=== PATIENT | male | born 1955 | race Caucasian/White ===

== ENCOUNTER 2020-08-26 22:08 | Day surgery (SDCO) | payer MEDICARE, OTHER ==
[~2020-08-26 22:08] MED LIST: NORVASC5 MG PO
[2020-08-26 22:46] LABS: BASOPHIL 0.3 % (0-2); HCT 30.4 % (42.0-52.0); HGB 10.1 g/dl (13.2-18.0); LYMPHOCYTE 13.4 % (15-48); MCHC 33.2 g/dL (32.0-36.0); MCV 96.2 fL (78.0-100.0); MONOCYTE 7.5 % (0-12); MPV 9.1 fL (6.0-9.5); NEUTROPHIL 76.2 % (41-80); NRBC 0; PLT 226 K/uL (150-400); RBC 3.16 M/uL (4.70-6.00); RDW 16.3 % (11.5-14.0); WBC 11.8 K/uL (4.0-10.5)
[2020-08-26 23:00] LABS: ALBUMIN 4.1 g/dL (3.4-5.0); BILIRUBIN - TOTAL 0.5 mg/dL (0.2-1.0); BUN/CREAT RATIO (CALC) 19.8 RATIO; CREATININE 1.21 mg/dL (0.67-1.17); GLOBULIN (CALCULATION) 4.5 g/dL; POTASSIUM 4.1 mmol/L (3.5-5.1); TOTAL PROTEIN 8.6 g/dL (6.4-8.2)
[2020-08-26 23:06] LABS: PRO-BNP 5037 pg/mL (<125)
[2020-08-27 00:14] LABS: CORONAVIRUS 2019 SARS-COV-2 NEGATIVE (NEGATIVE); INFLUENZA A NAA NEGATIVE (NEGATIVE)
[2020-08-27] MEDS ORDERED: TRAZODONE 100M100 MG PO (03:40)
[2020-08-27] MEDS ORDERED: FEOSOL325 MG PO (03:40)
[2020-08-27] MEDS ORDERED: KEPPRA XR500 MG PO (03:41)
[2020-08-27] MEDS ORDERED: ESCITALOPRAM OXA5 MG PO (03:42)
[2020-08-27] MEDS ORDERED: CARVEDILOL12.5 MG PO (03:44)
[2020-08-27 04:15] LABS: INR 0.96 (0.9-1.2); PROTHROMBIN TIME 12.1 SECONDS (11.4-13.6)
[2020-08-27] MEDS ORDERED: VENTOLIN HFA IN18 GM INH (09:55)
[2020-08-27] MEDS ORDERED: CLONIDINE HCL0.2 MG PO (09:56)
[2020-08-27] MEDS ORDERED: NORVASC5 MG PO (09:56)
[2020-08-27] MEDS ORDERED: LACTULOSE10 G/15 ML PO (09:57)
[2020-08-27] MEDS ORDERED: FOLIC ACID1 MG PO (09:58)
[2020-08-27] MEDS ORDERED: VITAMIN B-1 PO (10:00)
[2020-08-27] MEDS ORDERED: VITAMIN E PO (10:01)
--- NOTE | 2020-08-27 10:09 | NUR ---
08/27/20 Please consider full admit or discharge. Thank You
[2020-08-28 06:16] LABS: BASOPHIL 0.1 % (0-2); EOSINOPHIL 0 % (0-5); HCT 27.2 % (42.0-52.0); HGB 8.8 g/dl (13.2-18.0); MCH 31.9 pg (25.0-31.0); MCHC 32.4 g/dL (32.0-36.0); MCV 98.6 fL (78.0-100.0); MONOCYTE 7.6 % (0-12); MPV 9.4 fL (6.0-9.5); NEUTROPHIL 84.8 % (41-80); NRBC 0; PLT 228 K/uL (150-400); RBC 2.76 M/uL (4.70-6.00); RDW 16.5 % (11.5-14.0); WBC 12.5 K/uL (4.0-10.5)
[2020-08-28 06:30] LABS: ALBUMIN 3.5 g/dL (3.4-5.0); BILIRUBIN - TOTAL 0.3 mg/dL (0.2-1.0); BUN/CREAT RATIO (CALC) 25.8 RATIO; CREATININE 1.55 mg/dL (0.67-1.17); MAGNESIUM 2.4 mg/dL (1.8-2.4); PHOSPHORUS 4.8 mg/dL (2.6-4.7); POTASSIUM 5.4 mmol/L (3.5-5.1); TOTAL PROTEIN 7.5 g/dL (6.4-8.2)
[2020-08-29 06:25] LABS: BASOPHIL 0.1 % (0-2); EOSINOPHIL 0 % (0-5); HCT 25.9 % (42.0-52.0); HGB 8.4 g/dl (13.2-18.0); LYMPHOCYTE 7.1 % (15-48); MCH 31.9 pg (25.0-31.0); MCHC 32.4 g/dL (32.0-36.0); MCV 98.5 fL (78.0-100.0); MONOCYTE 7.6 % (0-12); MPV 9.4 fL (6.0-9.5); NEUTROPHIL 84.2 % (41-80); NRBC 0; PLT 235 K/uL (150-400); RBC 2.63 M/uL (4.70-6.00); RDW 16.6 % (11.5-14.0); WBC 14.4 K/uL (4.0-10.5)
[2020-08-29 06:43] LABS: BUN/CREAT RATIO (CALC) 30.8 RATIO; CREATININE 1.85 mg/dL (0.67-1.17); POTASSIUM 4.6 mmol/L (3.5-5.1)
[2020-08-29] MEDS ORDERED: SPIRIVA RESPIMAT4 G1 INH (14:14)
[2020-08-29] MEDS ORDERED: DUONEB 2.5-0.5M1 AMP INH (14:14)
[2020-08-29] MEDS ORDERED: AZITHROMYCIN250 MG PO (14:14)
[2020-08-29] MEDS ORDERED: CEFDINIR300 MG PO (14:14)
[2020-08-29] MEDS ORDERED: PREDNISONE 20MG20 MG PO (14:14)
--- NOTE | 2020-08-29 14:57 | NUR ---
08/29/20 Mr. Hidalgo lives alone. His sister, Martha Concepcion, , is the legal guardian. Mr. Hidalgo has a quad cane and nebulizer. He reports to be independent with IADLS. His sister and mother run errands and deliver groceries. Ms. Concepcion supported the referral to [facility] for . - Deepti Jon was requested to update the Face Sheet with the guardian's information. - A report was given to MS YARI Ferraro
== END 2020-08-29 17:50 | disposition home or self-care (01) ==
LOC: FER 22:08 → FMS 08-27 02:48
PROVIDERS: Emergency Medicine; Internal Medicine; Nurse Practitioner; ADMIT Internal Medicine
DX: Z53.8 Procedure and treatment not carried out for other reasons (principal)
CPT/HCPCS: 36415; 36600; 71045; 71275; 80048; 80053; 82803; 83605; 83735; 83880; 84100; 84145; 84484; 85025; 85379; 85610; 87040; 87070; 87077; 87186; 87205; 93005; 94010; 94640; 94664; 94760; 94762; G0378; J0696; J1650; J1940; J2405; J2930; J7512; Q9967; U0002

== ENCOUNTER 2020-08-30 10:15 | Inpatient (IN) | payer MEDICARE, OTHER ==
[~2020-08-30 10:15] MED LIST changes: +AZITHROMYCIN250 MG PO; +CARVEDILOL12.5 MG PO; +CEFDINIR300 MG PO; +CLONIDINE HCL0.2 MG PO; +DUONEB 2.5-0.5M1 AMP INH; +ESCITALOPRAM OXA5 MG PO; +FEOSOL325 MG PO; +FOLIC ACID1 MG PO; +KEPPRA XR500 MG PO; +LACTULOSE10 G/15 ML PO; +PREDNISONE 20MG20 MG PO; +SPIRIVA RESPIMAT4 G1 INH; +TRAZODONE 100M100 MG PO; +VENTOLIN HFA IN18 GM INH; +VITAMIN B-1 PO; +VITAMIN E PO
[2020-08-30 11:03] LABS: BASOPHIL 0.1 % (0-2); EOSINOPHIL 0 % (0-5); HCT 28.9 % (42.0-52.0); HGB 9.6 g/dl (13.2-18.0); LYMPHOCYTE 7.8 % (15-48); MCH 32.9 pg (25.0-31.0); MCHC 33.2 g/dL (32.0-36.0); MONOCYTE 9.9 % (0-12); MPV 9.6 fL (6.0-9.5); NRBC 0; PLT 289 K/uL (150-400); RBC 2.92 M/uL (4.70-6.00); RDW 16.9 % (11.5-14.0); WBC 21.3 K/uL (4.0-10.5)
[2020-08-30 11:13] LABS: ALBUMIN 4.4 g/dL (3.4-5.0); BILIRUBIN - TOTAL 0.5 mg/dL (0.2-1.0); BUN/CREAT RATIO (CALC) 37.5 RATIO; CREATININE 1.2 mg/dL (0.67-1.17); GLOBULIN (CALCULATION) 3.8 g/dL; TOTAL PROTEIN 8.2 g/dL (6.4-8.2)
[2020-08-30 11:19] LABS: LACTIC ACID 1.2 mmol/L (0.4-1.9)
[2020-08-30 12:52] LABS: BILIRUBIN NEGATIVE (NEGATIVE); BLOOD NEGATIVE Ery/uL (NEGATIVE); CLARITY CLEAR (CLEAR); COLOR YELLOW (YELLOW); GLUCOSE (U) NORMAL (NORMAL); LEUKOCYTES NEGATIVE Leu/uL (NEGATIVE); NITRITE NEGATIVE (NEGATIVE); PROTEIN NEGATIVE (NEGATIVE); SPECIFIC GRAVITY 1.025 (1.001-1.030); UROBILINOGEN 0.2 mg/dL (0.2-1.0); pH 5.5 (5.0-9.0)
[2020-08-31 05:40] LABS: BASOPHIL 0 % (0-2); EOSINOPHIL 0 % (0-5); HCT 28.1 % (42.0-52.0); HGB 9.4 g/dl (13.2-18.0); LYMPHOCYTE 6.4 % (15-48); MCH 32.4 pg (25.0-31.0); MCHC 33.5 g/dL (32.0-36.0); MCV 96.9 fL (78.0-100.0); MONOCYTE 3.7 % (0-12); MPV 9.8 fL (6.0-9.5); NEUTROPHIL 89.3 % (41-80); NRBC 0; PLT 251 K/uL (150-400); RDW 16.3 % (11.5-14.0); WBC 7.9 K/uL (4.0-10.5)
[2020-08-31 06:27] LABS: CREATININE 1.15 mg/dL (0.67-1.17); POTASSIUM 4.3 mmol/L (3.5-5.1)
[2020-08-31 13:07] LABS: FOLIC ACID (SERUM) 80.1 ng/mL (8.6-58.9)
[2020-09-01 02:20] LABS: CORONAVIRUS 229E NOT DETECTED (NOT DETECT); CORONAVIRUS HKU1 NOT DETECTED (NOT DETECT); CORONAVIRUS NL63 NOT DETECTED (NOT DETECT)
[2020-09-01 02:21] LABS: B. PERTUSSIS DNA NOT DETECTED (NOT DETECT); CHLAMYDOPHILA PNEUMON DNA PCR NOT DETECTED (NOT DETECT); CORONAVIRUS 2019 PCR NOT DETECTED (NOT DETECTD); CORONAVIRUS OC43 NOT DETECTED (NOT DETECT); HUMAN METAPNEUMO NOT DETECTED (NOT DETECT); INFLUENZA A NOT DETECTED (NOT DETECT); INFLUENZA A 2009 H1N1 NOT DETECTED (NOT DETECT); INFLUENZA A H1 NOT DETECTED (NOT DETECT); INFLUENZA A H3 NOT DETECTED (NOT DETECT); INFLUENZA B NOT DETECTED (NOT DETECT); MYCOPLASMA PNEUMONIAE NOT DETECTED (NOT DETECT); PARAINFLUENZA 1 NOT DETECTED (NOT DETECT); PARAINFLUENZA 2 NOT DETECTED (NOT DETECT); PARAINFLUENZA 3 NOT DETETED (NOT DETECT); PARAINFLUENZA 4 NOT DETECTED (NOT DETECT); RESPIRATORY SYNCYTIAL VIRUS NOT DETECTED (NOT DETECT)
[2020-09-01 06:28] LABS: BASOPHIL 0 % (0-2); EOSINOPHIL 0 % (0-5); HCT 26.1 % (42.0-52.0); HGB 8.8 g/dl (13.2-18.0); LYMPHOCYTE 5.3 % (15-48); MCH 32.5 pg (25.0-31.0); MCHC 33.7 g/dL (32.0-36.0); MCV 96.3 fL (78.0-100.0); MONOCYTE 3.3 % (0-12); MPV 9.8 fL (6.0-9.5); NRBC 0; PLT 236 K/uL (150-400); RBC 2.71 M/uL (4.70-6.00); RDW 15.6 % (11.5-14.0); WBC 9.4 K/uL (4.0-10.5)
[2020-09-01 06:42] LABS: NEUTROPHIL 90.8 % (41-80)
[2020-09-01 07:03] LABS: CREATININE 3.01 mg/dL (0.67-1.17); POTASSIUM 4.7 mmol/L (3.5-5.1)
--- NOTE | 2020-09-01 11:48 | NUR ---
09/01/20 Mr. Hidalgo lives alone. His siter, Martha Concepcion, , is his legal guardian. He has home 02, quad cane and nebuliazer. A referral was made to [facility] . Please call Eneida with [facility] at [phone] if patient discharges over the weekend.
[2020-09-02 04:15] LABS: CREATININE 4.37 mg/dL (0.67-1.17); MAGNESIUM 2.2 mg/dL (1.8-2.4); PHOSPHORUS 6.6 mg/dL (2.6-4.7); POTASSIUM 4.9 mmol/L (3.5-5.1)
[2020-09-03 03:17] LABS: BILIRUBIN NEGATIVE (NEGATIVE); BLOOD NEGATIVE Ery/uL (NEGATIVE); CLARITY CLEAR (CLEAR); COLOR YELLOW (YELLOW); GLUCOSE (U) NORMAL (NORMAL); LEUKOCYTES NEGATIVE Leu/uL (NEGATIVE); NITRITE NEGATIVE (NEGATIVE); PROTEIN NEGATIVE (NEGATIVE); SPECIFIC GRAVITY >=1.030 (1.001-1.030); UROBILINOGEN 0.2 mg/dL (0.2-1.0)
[2020-09-03 03:25] LABS: AMORPHOUS URATES CRYSTALS MODERATE; BACTERIA TRACE; STARCH GRANULES PRESENT; URINARY RBC RARE; YEAST PRESENT
[2020-09-03 03:33] LABS: URINE CREATININE 231.51 mg/dL (29.00-226.00)
[2020-09-03 04:22] LABS: CREATININE 5.81 mg/dL (0.67-1.17); POTASSIUM 4.8 mmol/L (3.5-5.1)
[2020-09-04 06:00] LABS: CREATININE 7.38 mg/dL (0.67-1.17); POTASSIUM 5.2 mmol/L (3.5-5.1)
== END 2020-09-04 11:28 | disposition other institution (70) | DRG 280 ==
LOC: FER 10:15 → FICU 13:04 → FTCU 09-02 17:23
PROVIDERS: Emergency Medicine; Internal Medicine Nephrology; ADMIT Allergy & Immunology Allergy
DX: I13.0 Hypertensive heart and chronic kidney disease with heart failure and stage 1 through stage 4 chronic kidney disease, or unspecified chronic kidney disease (principal); J96.01 Acute respiratory failure with hypoxia; I21.A1 Myocardial infarction type 2; I50.33 Acute on chronic diastolic (congestive) heart failure; J18.9 Pneumonia, unspecified organism; N17.9 Acute kidney failure, unspecified; E87.1 Hypo-osmolality and hyponatremia; N18.9 Chronic kidney disease, unspecified; D64.9 Anemia, unspecified; E83.39 Other disorders of phosphorus metabolism; J44.9 Chronic obstructive pulmonary disease, unspecified; E11.9 Type 2 diabetes mellitus without complications; G40.909 Epilepsy, unspecified, not intractable, without status epilepticus; F32.9 Major depressive disorder, single episode, unspecified; E87.5 Hyperkalemia; Z87.891 Personal history of nicotine dependence; Z90.49 Acquired absence of other specified parts of digestive tract
CPT/HCPCS: 36415; 36600; 71045; 71046; 71275; 74018; 76770; 80048; 80053; 80069; 81001; 81003; 82140; 82150; 82570; 82607; 82728; 82746; 82803; 83540; 83605; 83735; 83880; 83935; 84100; 84145; 84300; 84484; 85025; 85379; 85610; 87040; 87070; 87077; 87088; 87186; 87205; 93005; 94010; 94640; 94660; 94664; 94667; 94668; 94760; 94762; 97162; G0378; J0360; J0696; J1170; J1644; J1650; J1940; J2405; J2550; J2920; J2930; J7030; J7120; J7512; Q9967; U0002

== ENCOUNTER 2020-10-27 22:30 | Inpatient (IN) | payer MEDICARE, OTHER ==
[~2020-10-27] VITALS: Ht 160 cm; Wt 49.7 kg
[2020-10-27 23:48] LABS: BASOPHIL 0.3 % (0-2); EOSINOPHIL 0.6 % (0-5); HCT 28.3 % (42.0-52.0); HGB 9.2 g/dl (13.2-18.0); LYMPHOCYTE 9.6 % (15-48); MCH 31.5 pg (25.0-31.0); MCHC 32.5 g/dL (32.0-36.0); MCV 96.9 fL (78.0-100.0); MONOCYTE 8.9 % (0-12); MPV 10.1 fL (6.0-9.5); NEUTROPHIL 79.7 % (41-80); NRBC 0; PLT 338 K/uL (150-400); RBC 2.92 M/uL (4.70-6.00); RDW 17.8 % (11.5-14.0); WBC 19.4 K/uL (4.0-10.5)
[2020-10-27 23:53] LABS: INR 1.23 (0.9-1.2); PROTHROMBIN TIME 14.7 SECONDS (11.4-13.6); PTT 41.1 SECONDS (22.2-34.7)
[2020-10-27 23:54] LABS: D-DIMER 1.45 ug/mLFEU (0.00-0.41)
[2020-10-27 23:59] LABS: LACTIC ACID 1.2 mmol/L (0.4-1.9); PRO-BNP 28588 pg/mL (<125)
[2020-10-28] LABS: ALBUMIN 4.1 g/dL (3.4-5.0); BILIRUBIN - TOTAL 0.8 mg/dL (0.2-1.0); BUN/CREAT RATIO (CALC) 16.8 RATIO; CREATININE 1.19 mg/dL (0.67-1.17); GLOBULIN (CALCULATION) 4.5 g/dL; MAGNESIUM 2.1 mg/dL (1.8-2.4); POTASSIUM 4.4 mmol/L (3.5-5.1); TOTAL PROTEIN 8.6 g/dL (6.4-8.2)
[2020-10-28 01:30] LABS: IRON % SATURATION 7.2 %SAT (20-50)
[2020-10-28 01:49] LABS: BILIRUBIN NEGATIVE (NEGATIVE); BLOOD NEGATIVE Ery/uL (NEGATIVE); CLARITY CLEAR (CLEAR); COLOR YELLOW (YELLOW); GLUCOSE (U) NORMAL (NORMAL); LEUKOCYTES NEGATIVE Leu/uL (NEGATIVE); NITRITE NEGATIVE (NEGATIVE); PROTEIN 2+ mg/dL (NEGATIVE); SPECIFIC GRAVITY >=1.030 (1.001-1.030); UROBILINOGEN 0.2 mg/dL (0.2-1.0)
[2020-10-28 01:53] LABS: BACTERIA TRACE; SQUAMOUS EPITHELIAL CELLS RARE; URINARY RBC RARE
--- NOTE | 2020-10-28 08:31 | NUR ---
PATIENT RECEIVED FROM ER VIA STRETCHER. REPORT FROM JENNIFER. PLACED ON BIPAP.
[2020-10-28] MEDS ORDERED: NORVASC5 MG PO (09:18)
[2020-10-28] MEDS ORDERED: PROTONIX 40MG T40 MG PO (09:18)
[2020-10-28] MEDS ORDERED: NORCO 5-325 TA1 EACH PO (09:19)
[2020-10-28] MEDS ORDERED: LEVETIRACETAM500 MG PO (09:21)
[2020-10-28] MEDS ORDERED: VENTOLIN HFA IN18 GM INH (09:21)
[2020-10-28] MEDS ORDERED: PRINIVIL20 MG PO (09:22)
[2020-10-28] MEDS ORDERED: LEXAPRO 10MG TA10 MG PO (09:23)
[2020-10-28] MEDS ORDERED: LACTULOSE10 G/15 ML PO (09:24)
[2020-10-28] MEDS ORDERED: CLONIDINE HCL0.2 MG PO (09:24)
[2020-10-28] MEDS ORDERED: COREG 6.25MG6.25 MG PO (09:25)
[2020-10-28] MEDS ORDERED: FEOSOL325 MG PO (09:25)
[2020-10-29 04:31] LABS: BASOPHIL 0 % (0-2); EOSINOPHIL 0 % (0-5); HCT 23.7 % (42.0-52.0); HGB 7.8 g/dl (13.2-18.0); LYMPHOCYTE 4.9 % (15-48); MCH 31.3 pg (25.0-31.0); MCHC 32.9 g/dL (32.0-36.0); MCV 95.2 fL (78.0-100.0); MONOCYTE 1.3 % (0-12); MPV 9.1 fL (6.0-9.5); NRBC 0; PLT 255 K/uL (150-400); RBC 2.49 M/uL (4.70-6.00); RDW 17.6 % (11.5-14.0); WBC 7.9 K/uL (4.0-10.5)
[2020-10-29 04:36] LABS: NEUTROPHIL 92.9 % (41-80)
[2020-10-29 05:02] LABS: ALBUMIN 2.9 g/dL (3.4-5.0); BILIRUBIN - TOTAL 0.4 mg/dL (0.2-1.0); BUN/CREAT RATIO (CALC) 21.8 RATIO; CREATININE 1.65 mg/dL (0.67-1.17); GLOBULIN (CALCULATION) 3.8 g/dL; MAGNESIUM 2.1 mg/dL (1.8-2.4); POTASSIUM 5.1 mmol/L (3.5-5.1); TOTAL PROTEIN 6.7 g/dL (6.4-8.2)
[2020-10-29 05:14] LABS: PRO-BNP > 35000 pg/mL (<125)
[2020-10-30 05:50] LABS: BASOPHIL 0 % (0-2); EOSINOPHIL 0 % (0-5); HCT 24.4 % (42.0-52.0); HGB 8.1 g/dl (13.2-18.0); LYMPHOCYTE 2.9 % (15-48); MCH 31.3 pg (25.0-31.0); MCHC 33.2 g/dL (32.0-36.0); MCV 94.2 fL (78.0-100.0); MONOCYTE 2.4 % (0-12); MPV 9.5 fL (6.0-9.5); NEUTROPHIL 94.3 % (41-80); NRBC 0; PLT 296 K/uL (150-400); RBC 2.59 M/uL (4.70-6.00); RDW 17.4 % (11.5-14.0); WBC 9.2 K/uL (4.0-10.5)
[2020-10-30 06:03] LABS: BUN/CREAT RATIO (CALC) 28.8 RATIO; CREATININE 1.84 mg/dL (0.67-1.17); POTASSIUM 5.3 mmol/L (3.5-5.1)
--- NOTE | 2020-10-31 08:12 | NUR ---
PATIENT WAS VERY PLEASANT, ANSWERED QUESTIONS AND TOOK MEDICATIONS WELL. PATIENT IS VERY FRAILE, THIN AND EMACIATED.
--- NOTE | 2020-10-31 10:49 | NUR ---
PT. REPORTS THAT HE RESIDES ALONE. HIS SISTER, AMERICA STALLINGS IS HIS POA. [phone]. HIS MOTHER IS JOHNNIE HEMA [phone]. BOTH HIS SISTER AND MOTHER ATTEND TO ERRANDS AND TAKING HIM TO DR. AYALA. HE HAS HOME O2, CANE, NEUBLIZER.
--- NOTE | 2020-10-31 17:29 | NUR ---
PATIENT HAS BEEN RESTING MOST OF THE DAY, WHEN ENTERING ROOM PATIENT HAS ALWAYS HAD THE BLANKET OVER HIS HEAD. HE IS VERY PLEASENT TO COOPERTIVE
[2020-11-01 04:49] LABS: BASOPHIL 0.1 % (0-2); EOSINOPHIL 0 % (0-5); HCT 23.6 % (42.0-52.0); HGB 8.1 g/dl (13.2-18.0); LYMPHOCYTE 3.9 % (15-48); MCHC 34.3 g/dL (32.0-36.0); MCV 90.4 fL (78.0-100.0); MONOCYTE 8.5 % (0-12); MPV 9.7 fL (6.0-9.5); NEUTROPHIL 86.1 % (41-80); NRBC 0; PLT 291 K/uL (150-400); RBC 2.61 M/uL (4.70-6.00); RDW 16.6 % (11.5-14.0); WBC 12.6 K/uL (4.0-10.5)
[2020-11-01 05:10] LABS: BUN/CREAT RATIO (CALC) 39.3 RATIO; CREATININE 1.73 mg/dL (0.67-1.17); POTASSIUM 3.9 mmol/L (3.5-5.1)
--- NOTE | 2020-11-01 11:54 | NUR ---
0850 ATTEMPTED TO WEAN OFF THE 100% NONREBREATHER MASK. PLACED ON A OXYIMIZER AT 8L NC PER DR. NARANJO. O2 SAT 94-97% RESTING QUIETLY AND BREATHING IS STILL LABORED BUT "STATES THAT IT IS BETTER" WILL CONTINUE TO MONITOR FOR CHANGES. 1025 "CALLED OUT THE i CAN'T BREATH OR CAUGHT MY BREATHE", RESP. NOTIFED 1030 PLACED BACK ON THE 100% NON REBREATHER AND REPORTS THAT IS HAS HELPED SOME. STILLING UP IN THE BED IN A TRIPOD POSITION. 1031 DR. NARANJO NOTIFED OF THE CHANGES. NEW ORDERS FOR LASIX IV TO BE GIVEN. 1054 REPORTS THAT THE PAIN MEDICAITONS HAS NOT HELPED AND THE BREATHING IS WORSE AND HE IS STARTING TO HAVE A PANIC ATTACK. LASIX 40 MG IV WAS GIVEN. DR. NARANJO WAS NOTIFED OF THE INCREASED PANIC AND INCREASED LABORED BREATHING. 1053 V/S 177/84, HR 89, RESP 20 AND LABORED, O2 SAT 89% ON A 100% NONREBREATHER. STILL SITTING IN THE TRIPOD POSITION AND STRUGGLING TO BREATHING WITH 100% NONREBREATHER. NEW ORDERS TO TRANSFER TO TCU [address]ARANJO. 1118 REPORT WAS CALLED TO MAILE RICHMOND RN. 1130 TRANSFERED TO TCU 4 VIA BED WITH NURSE AND RESP. CONDITION WAS STABLE AT THE TIME OF THE TRANSFER.
[2020-11-02 05:51] LABS: BASOPHIL 0 % (0-2); EOSINOPHIL 0 % (0-5); HCT 22.9 % (42.0-52.0); HGB 7.7 g/dl (13.2-18.0); LYMPHOCYTE 5.2 % (15-48); MCH 30.9 pg (25.0-31.0); MCHC 33.6 g/dL (32.0-36.0); MONOCYTE 10.1 % (0-12); NEUTROPHIL 83.7 % (41-80); NRBC 0; PLT 259 K/uL (150-400); RBC 2.49 M/uL (4.70-6.00); RDW 16.6 % (11.5-14.0); WBC 9.8 K/uL (4.0-10.5)
[2020-11-02 06:09] LABS: BUN/CREAT RATIO (CALC) 38.3 RATIO; CREATININE 1.62 mg/dL (0.67-1.17); POTASSIUM 4.1 mmol/L (3.5-5.1)
--- NOTE | 2020-11-02 11:40 | NUR ---
0900- BIPAP REMOVED PER PT REQUEST AND PLACED BACK ON 50% VENTI. 1020- PT DESAT TO 84% on 50% venti. MD NOTIFIED ABOUT DESAT AND PT NOT WANTING TO BE PLACED BACK ON BIPAP. MD STATED TO ATTEMPT TO TRY OXIMIZER ON 10 L O2 AND SEE IF THAT IS MORE COMFORTABLE AND EASIER TO EAT AND DRINK.
--- NOTE | 2020-11-02 15:23 | NUR ---
PT REQUEST TO REMOVE BIPAP FOR A BREAK TO EAT AND DRINK, BLOW NOSE ETC. MD NOTIFIED AND PLACED A VERBAL ORDER FOR OXIMIZER. PT PLACED ON OXIMIZER 15 L. PT SAT WAS 90%. 1600- PT SAT 88% ON OXIMIZER, WENT TO CHECK ON PT AND PT WAS IN TRIPOD POSITION IN BED, SOA, USING ACCESSORY MUSCLES, LIPS PURPLE. RN ASKED PT TO GO BACK ON BIPAP MASK AND PT AGREED. PT IS NOW 96%.
[2020-11-03 06:19] LABS: BASOPHIL 0 % (0-2); EOSINOPHIL 0 % (0-5); HCT 21.5 % (42.0-52.0); HGB 7.4 g/dl (13.2-18.0); LYMPHOCYTE 4.5 % (15-48); MCH 31.9 pg (25.0-31.0); MCHC 34.4 g/dL (32.0-36.0); MCV 92.7 fL (78.0-100.0); MONOCYTE 11.3 % (0-12); MPV 10.1 fL (6.0-9.5); NEUTROPHIL 83.3 % (41-80); NRBC 0; PLT 230 K/uL (150-400); RBC 2.32 M/uL (4.70-6.00); RDW 16.9 % (11.5-14.0); WBC 6.7 K/uL (4.0-10.5)
[2020-11-03 06:42] LABS: BUN/CREAT RATIO (CALC) 43.4 RATIO; CREATININE 1.36 mg/dL (0.67-1.17)
--- NOTE | 2020-11-03 09:00 | NUR ---
PT STATING THAT HE WANTS TO AND WANTST O LEAVE THE HOSPITAL TO AT HOME. PT CALLED [facility] HELPER Jori SORTO AFTER HE LEFT THE ROOM FOR NOT LOOKING AT HIS BLOODY SPUTUMN. HE COMPLAINED THAT THE HOSPITAL WAS A A MONEY MAKING SCHEME AND THAT NOONE EVER HELPS HIM. WILL PUT A CONSULT IN FOR LEON.
--- NOTE | 2020-11-03 10:25 | NUR ---
PT. IS NOW UNWILLING TO GO TO [facility]. PT WAS CURSING AND VERY ADAMANT THAT HE WOULD NOT GO TO ANOTHER HOSPITAL. ADVISED DR. NARANJO OF PT REFUSAL TO GO TO [facility]. ADVISED DR. NARANJO THAT IF PT. IS TO GO HOME WITH A TRILOGY. DR. NARANJO IS TO WRITE AN ORDER FOR THE TRILOGY IF APROPRIATE.
[2020-11-04 06:25] LABS: BASOPHIL 0.1 % (0-2); EOSINOPHIL 0 % (0-5); HCT 20.9 % (42.0-52.0); LYMPHOCYTE 4.1 % (15-48); MCH 31.4 pg (25.0-31.0); MCHC 33.5 g/dL (32.0-36.0); MCV 93.7 fL (78.0-100.0); MONOCYTE 7.9 % (0-12); MPV 10.2 fL (6.0-9.5); NEUTROPHIL 86.9 % (41-80); NRBC 0; PLT 218 K/uL (150-400); RBC 2.23 M/uL (4.70-6.00); RDW 17.2 % (11.5-14.0); WBC 13.1 K/uL (4.0-10.5)
[2020-11-04 06:41] LABS: BUN/CREAT RATIO (CALC) 45.6 RATIO; CREATININE 1.03 mg/dL (0.67-1.17); MAGNESIUM 2.2 mg/dL (1.8-2.4)
--- NOTE | 2020-11-04 18:39 | NUR ---
HELD PATIENT AM MEDICATION PER TIL PATIENT WAS ABLE TO TOLERATE. PATIENT WAS PLACED ON BIPAP AFTER DETERIORATION ON NON-REBREATHER. MEDICATIONS WERE HELD TIL APPROX 1500. PATIENT HAD IMPROVED AFTER BEING ON THE BIPAP. BOTH ANTIBIOTICS WERE GIVEN.
[2020-11-05 04:02] LABS: BASOPHIL 0.1 % (0-2); EOSINOPHIL 0 % (0-5); HCT 22.1 % (42.0-52.0); HGB 7.3 g/dl (13.2-18.0); LYMPHOCYTE 2.7 % (15-48); MCH 31.1 pg (25.0-31.0); MONOCYTE 2.6 % (0-12); MPV 10.4 fL (6.0-9.5); NRBC 0; PLT 198 K/uL (150-400); RBC 2.35 M/uL (4.70-6.00); RDW 17.2 % (11.5-14.0)
[2020-11-05 04:28] LABS: BUN/CREAT RATIO (CALC) 42.7 RATIO; CREATININE 1.03 mg/dL (0.67-1.17); POTASSIUM 4.5 mmol/L (3.5-5.1)
[2020-11-06 03:46] LABS: BASOPHIL 0.1 % (0-2); EOSINOPHIL 0 % (0-5); HCT 20.6 % (42.0-52.0); HGB 6.9 g/dl (13.2-18.0); LYMPHOCYTE 3.1 % (15-48); MCH 31.7 pg (25.0-31.0); MCHC 33.5 g/dL (32.0-36.0); MCV 94.5 fL (78.0-100.0); MONOCYTE 4.9 % (0-12); MPV 10.6 fL (6.0-9.5); NRBC 0; PLT 186 K/uL (150-400); RBC 2.18 M/uL (4.70-6.00); RDW 16.9 % (11.5-14.0); WBC 9.9 K/uL (4.0-10.5)
[2020-11-06 03:49] LABS: NEUTROPHIL 90.4 % (41-80)
[2020-11-06 04:07] LABS: BUN/CREAT RATIO (CALC) 43.3 RATIO; CREATININE 0.9 mg/dL (0.67-1.17); MAGNESIUM 1.8 mg/dL (1.8-2.4); POTASSIUM 4.2 mmol/L (3.5-5.1)
[2020-11-07 05:39] LABS: BASOPHIL 0.1 % (0-2); EOSINOPHIL 0 % (0-5); LYMPHOCYTE 4.8 % (15-48); MCH 31.4 pg (25.0-31.0); MCHC 33.3 g/dL (32.0-36.0); MCV 94.2 fL (78.0-100.0); MONOCYTE 8.6 % (0-12); MPV 9.8 fL (6.0-9.5); NEUTROPHIL 84.4 % (41-80); NRBC 0; PLT 163 K/uL (150-400); RBC 2.23 M/uL (4.70-6.00); RDW 17.1 % (11.5-14.0); WBC 9.9 K/uL (4.0-10.5)
[2020-11-07 06:04] LABS: BUN/CREAT RATIO (CALC) 32.6 RATIO; CREATININE 0.92 mg/dL (0.67-1.17); POTASSIUM 3.9 mmol/L (3.5-5.1)
--- NOTE | 2020-11-07 15:47 | NUR ---
CLINICAL INFORMATION TO MARIA M FOR TRILOGY. LISA WITH [facility] NEEDS A PROGRESS NOTE FROM DR. CARLSON. ADVISED DR. CARLSON OF THE NEED FOR A PROGRESS NOTE AND HE WILL TYPE THE NOTE.
--- NOTE | 2020-11-07 18:18 | NUR ---
NO REACTION TO BLOOD
--- NOTE | 2020-11-08 13:21 | NUR ---
vancomycin trough needed prior to dose but not ordered. last trough 11/05. dr. romero states that this is last dose of vanc and pt dose not require trough.
[2020-11-09 06:12] LABS: BASOPHIL 0.1 % (0-2); EOSINOPHIL 0.1 % (0-5); HCT 23.9 % (42.0-52.0); LYMPHOCYTE 4.4 % (15-48); MCH 31.9 pg (25.0-31.0); MCHC 33.5 g/dL (32.0-36.0); MCV 95.2 fL (78.0-100.0); MONOCYTE 6.2 % (0-12); MPV 10.4 fL (6.0-9.5); NEUTROPHIL 87.1 % (41-80); NRBC 0; PLT 128 K/uL (150-400); RBC 2.51 M/uL (4.70-6.00); RDW 17.3 % (11.5-14.0)
[2020-11-09 06:42] LABS: BUN/CREAT RATIO (CALC) 47.6 RATIO; CREATININE 1.05 mg/dL (0.67-1.17)
[2020-11-11 04:22] LABS: BUN/CREAT RATIO (CALC) 42.4 RATIO; CREATININE 0.99 mg/dL (0.67-1.17)
[2020-11-11] MEDS ORDERED: CLONAZEPAM0.5 MG PO (10:49)
[2020-11-11] MEDS ORDERED: MEDROL 4MG DOSEP4 MG PO (10:49)
[2020-11-11] MEDS ORDERED: BUMETANIDE1 MG PO (10:49)
[2020-11-11] MEDS ORDERED: ISOSORBIDE MONO30 MG PO (10:49)
[2020-11-11] MEDS ORDERED: DALIRESP500 MCG PO (10:49)
--- NOTE | 2020-11-11 10:55 | NUR ---
RECEIVED TC FROM AIDEN WITH [facility] [phone]. SHE ADVISED THAT TRILOGY HAS BEEN APPROVED. AUTH # IS [id number]. TC FROM [facility] ADVISING Ruthann TRILOGY APPROVED. DUMPER MOLD CLEANER WOULD BE AT THE HOSPITAL TODAY TO SET IT UP. ORDERED A TRAVEL TANK FOR PT. TO GO HOME WITH. PT. HAS A HOME CONCENTRATOR. PER PT. HIS SISTER OR MOTHER WILL PICK HIM UP FROM THE HOSPITAL. ADVISED DR. CARLSON, AND NURSE LAYA OF THIS INFORMATION. ADVISED [facility] THAT PT. WOULD D/C HOME THIS DATE.
[2020-11-11] MEDS ORDERED: SPIRIVA 185 PUFFS/IN INH (10:57)
[2020-11-11] MEDS ORDERED: DUONEB 2.5-0.5M1 AMP NEB (10:57)
[2020-11-11] MEDS ORDERED: ADVAIR HFA 230-28 GM INH (10:57)
--- NOTE | 2020-11-11 11:55 | NUR ---
RECEIVED A CALL FROM DARLENE AT [employer]. SHE HAD CONCERNS WITH SEVERAL MEDICATIONS THAT WERE E-SCRIBED BY DR. CARLSON FOR THE PATIENT'S DISCHARGE. DISCUSSED ALL PRESCRIPTIONS WITH DR. CARLSON AND PROVIDED A VERBAL CLARIFICATION TO KIM. MARY WITH [facility] WAS NOTIFIED OF A PRIOR AUTHORIZATION NEED FOR THE PATIENT'S SPIRIVA PER THE PHARMACY. PRIMARY RN UPDATED.
--- NOTE | 2020-11-11 13:26 | NUR ---
TC WITH АНДРЕЙ AT [facility] FOR PRIOR AUTH OF SPIRIVA AT [phone]. SHE DID AN EMERGENCY OVERRIDE FOR PRESCRIPTION FOR SPIRIVA SO PT. MAY GET THE SCRIPT TODAY HE IS BEING DISCHARGED FROM THE HOSPITAL. SHE WILL CONTACT [employer] TO ADVISED OF THE AUTHORIZATION WELL CALLING THE PT. CALL REFERENCE # IS [id number] TC FROM [facility] SHE ADVISED THAT SHE HAS CONTACTED [employer] [employer] WITH THE AUTHORIZATION. TC TO U TO SPEAK WITH NURSE LAYA. SHE WAS UNAVAILABLE ADVISED YARI COLVIN TO PLEASE TELL LAYA PT. SPIRIVIA HAS BEEN APPROVED SO THAT HE MAY BE DISCHARGED.
--- NOTE | 2020-11-11 13:35 | NUR ---
NOTIFIED VELMA WITH [facility] PT. D/C HOME THIS DATE.
--- NOTE | 2020-11-11 14:16 | NUR ---
FAXED REQUESTED CLINICALS TO [facility] FOR AUTHOR[facility] FOR [facility] FAXED TO [phone].
== END 2020-11-11 13:15 | disposition home health service (06) | DRG 291 ==
LOC: FER 22:30 → FICU 10-28 04:58 → FMS 10-28 04:58 → FTCU 10-28 04:58 → FICU 10-28 08:04 → FMS 10-29 10:05 → FTCU 11-01 10:54 → FICU 11-07 03:29 → FTCU 11-08 21:12
PROVIDERS: Allergy & Immunology Allergy; Emergency Medicine; Internal Medicine; Internal Medicine Cardiovascular Disease; Nurse Practitioner; ADMIT Internal Medicine
PROC: 5A09557 Assistance with Respiratory Ventilation, Greater than 96 Consecutive Hours, Continuous Positive Airway Pressure (ICD-10-PCS; principal; 2020-10-28)
PROC: 30233N1 Transfusion of Nonautologous Red Blood Cells into Peripheral Vein, Percutaneous Approach (ICD-10-PCS; 2020-11-07)
DX: I13.0 Hypertensive heart and chronic kidney disease with heart failure and stage 1 through stage 4 chronic kidney disease, or unspecified chronic kidney disease (principal); J96.21 Acute and chronic respiratory failure with hypoxia; J96.22 Acute and chronic respiratory failure with hypercapnia; J18.9 Pneumonia, unspecified organism; N17.9 Acute kidney failure, unspecified; I50.30 Unspecified diastolic (congestive) heart failure; E87.2 Acidosis; R64 Cachexia; E44.0 Moderate protein-calorie malnutrition; Z68.1 Body mass index [BMI] 19.9 or less, adult; T50.1X5A Adverse effect of loop [high-ceiling] diuretics, initial encounter; J43.9 Emphysema, unspecified; F32.9 Major depressive disorder, single episode, unspecified; Z20.822 Contact with and (suspected) exposure to COVID-19; F41.9 Anxiety disorder, unspecified; N18.9 Chronic kidney disease, unspecified; D63.1 Anemia in chronic kidney disease; D50.9 Iron deficiency anemia, unspecified; D52.9 Folate deficiency anemia, unspecified; D51.9 Vitamin B12 deficiency anemia, unspecified; K74.60 Unspecified cirrhosis of liver; B19.20 Unspecified viral hepatitis C without hepatic coma; G40.909 Epilepsy, unspecified, not intractable, without status epilepticus; I50.810 Right heart failure, unspecified; I27.20 Pulmonary hypertension, unspecified; Z90.49 Acquired absence of other specified parts of digestive tract; Z98.890 Other specified postprocedural states; Z87.891 Personal history of nicotine dependence
CPT/HCPCS: 36415; 36430; 36600; 71045; 71046; 80048; 80053; 80202; 81001; 82103; 82140; 82803; 83036; 83540; 83550; 83605; 83615; 83735; 83880; 84145; 84443; 84484; 85025; 85379; 85610; 85730; 86850; 86900; 86901; 86922; 87040; 93005; 94010; 94640; 94660; 94668; 96374; 96375; 96376; J0360; J0692; J1170; J1650; J1940; J2916; J2930; J3370; J7040; J7050; J7512; P9016; U0002